=== PATIENT | female | born 1980 | race Caucasian/White ===

== ENCOUNTER → 2016-08-23 | Outpatient (CLI) | payer BC ==
[~2016-08-23] MED LIST: ASACOL HD800 MG PO; BENTYL10 MG; CIPRO250 M1; DELTASONE20 MG PO; FLAGYL250 MG; FLORASTOR250 MG PO; NORCO 5-325 MG1 TAB PO; PREFERA OB TAB1 EACH PO; PROTONIX40 MG PO; ZOFRAN ODT4 MG PO
== END | disposition disaster alternative care site (69) ==
LOC: GRAD 10:17
DX: J32.9 Chronic sinusitis, unspecified (principal); J34.2 Deviated nasal septum

== ENCOUNTER → 2016-08-25 | Outpatient (CLI) | payer BC | END | disposition disaster alternative care site (69) | LOC: GRAD 08:27 | DX: Z03.89 Encounter for observation for other suspected diseases and conditions ruled out (principal) ==

== ENCOUNTER 2016-09-28 00:02 | Emergency (ER) | payer BC ==
--- NOTE | ~2016-09-28 | ER ---
PATIENT'S NAME: CHESTER NARANJO [facility] AGE: 35 Y [address] ROOM: [place] [address] LOCATION: [facility] ADMIT DATE: 09/28/2016 ER/Outpatient Report DISCHARGE DATE: 09/28/2016 FAMILY PHYSICIAN: Anitha Cortes MD ATTENDING PHYSICIAN: Denise Sanchez Time of Arrival: 0002 hours. Time of Evaluation: 0017 hours. IDENTIFICATION: A 35-year-old female. CHIEF COMPLAINT: Shortness of breath. HISTORY OF PRESENT ILLNESS: The patient is a 35-year-old female, postop umbilical hernia repair a week ago, Monday. None hours prior to arrival, the patient became short of breath, worse with movement and a burning chest discomfort in her anterior chest. No radiation of the pain. No nausea or vomiting. No other associated symptoms. Pain is worse with movement and with deep breath. The patient had a low-grade temperature, 99 to 100 at home. She has had no cough. No abdominal pain, nausea or vomiting. PAST MEDICAL HISTORY: ALLERGIES: NO KNOWN DRUG ALLERGIES. CURRENT MEDICATIONS: Denies. MEDICAL PROBLEMS: Crohn's disease. CURRENT MEDICATIONS: 1. Pentasa 2 tablets p.o. b.i.d. control pills. 2. [place] 5/325 p.r.n. PRIOR SURGERIES: Recent hernia repair. SOCIAL HISTORY: The patient is , lives here in [place]. Tobacco use, denies. Alcohol use, denies. Drug use, denies. PATIENT'S NAME: CHESTER NARANJO [facility] AGE: 35 Y [address] ROOM: [place] [address] LOCATION: [facility] ADMIT DATE: 09/28/2016 ER/Outpatient Report DISCHARGE DATE: 09/28/2016 FAMILY PHYSICIAN: Anitha Cortes MD ATTENDING PHYSICIAN: Denise Sanchez REVIEW OF SYSTEMS: All systems reviewed and negative other than what is noted in the HPI. FAMILY HISTORY: No family history of premature coronary artery disease. No family history of blood clots. PHYSICAL EXAMINATION: VITAL SIGNS: Height 5 feet 7 inches, weight 66.6 kg. Pulse 119, blood pressure 111/73, respirations 22, temperature 99.4, and saturations 100% on room air. GENERAL: A 35-year-old female, in mild respiratory distress with tachypnea. HEAD: Normocephalic, atraumatic. EARS: TMs translucent, both ears. EYES: Pupils equal and reactive to light and accommodation. Extraocular movements intact. NOSE: Mucosa pink. No lesions. MOUTH: No lesions. Pharynx benign. NECK: Supple. No lymphadenopathy. No thyromegaly. LUNGS: Clear to auscultation. Breath sounds are equal. No rhonchi, wheezes, or rales. HEART: Sinus tachycardia. No murmur, rub, or gallop. ABDOMEN: Bowel sounds present. Soft. Nondistended. Incision site is clean, dry, and intact with Steri-Strips, no erythema, no tenderness. No CVA tenderness. SKIN: [place], warm, and dry. No lesions or rashes noted. NEURO: The patient is alert and oriented x4. Cranial nerves 2 through 12 grossly intact. Motor strength 5/5 throughout. Sensation is intact to light touch. No lower extremity edema. No calf tenderness. LABORATORY DATA AND X-RAYS: EKG: Sinus tachycardia at 109 beats per minute. No acute ST elevation or depression. Hemoglobin 12.1, hematocrit 37.5, platelets 313, white count 12.6 with a normal differential. INR 1.01. Lactate 1.1. Sodium 139, potassium 4.0, chloride 107, CO2 of 24, BUN 14, creatinine 0.8, blood sugar 85. Liver enzymes normal. Alkaline phosphatase 190. GFR greater than 60. Magnesium 2.0. CPK 39, CK-MB less than 0.5. Troponin I less than 0.040. Procalcitonin less than 0.05. TSH 1.580. UA is negative. Had a negative hCG preop, and denies any interval chance of . CT scan, PE protocol: Small low- density thyroid nodules. No pulmonary embolus. Unremarkable chest CT. EMERGENCY DEPARTMENT COURSE: The patient continued to be tachypneic and had a burning sensation in her chest. GI cocktail did relieve the burning sensation, but she still had pain PATIENT'S NAME: CHESTER NARANJO [facility] AGE: 35 Y [address] ROOM: [place] [address] LOCATION: ED ADMIT DATE: 09/28/2016 ER/Outpatient Report DISCHARGE DATE: 09/28/2016 FAMILY PHYSICIAN: Anitha Cortes MD ATTENDING PHYSICIAN: Denise Sanchez with movement, leaning forward and deep breath. We did discuss options. She received [place] 5/325 one p.o. here. IMPRESSION: 1. Shortness of breath. No acute etiology identified. 2. Pleuritic chest pain. 3. Thyroid nodules, incidentally found on CT scan. Bloom[place] p.r.n. pain. Rest and fluids. Deep breath. No lifting. Follow up with Dr. Cortes in 1 day. Follow up sooner if any problems or concerns. The patient and her understand and agree. We did discuss the use of IV Toradol as an anti-inflammatory, but with her Crohn's disease, he said nonsteroidals are contraindicated, so we did just elect to give her one [place] here. DENISE SANCHEZ MD CAR/modl /[id number] d: 09/28/16 0353 t: 09/28/16 0549, OUTPATIENT REPORT
[2016-09-28 00:52] LABS: BASOPHIL % 0.3 %; EOSINOPHIL # 0.1 K/uL (0.0-0.5); EOSINOPHIL % 0.4 %; HEMATOCRIT 37.5 % (33.0-46.0); HEMOGLOBIN 12.1 g/dL (11.0-15.0); IMMATURE GRANULOCYTE % 0.2 %; LYMPHOCYTE # 2.4 K/uL (0.8-4.0); LYMPHOCYTE % 18.8 %; MCH 27.8 pg (27.0-34.0); MCHC 32.3 gm/dL (32.0-36.5); MCV 86.2 fl (83.0-98.0); MONOCYTE % 7.9 %; MPV 9.9 fl (9.4-12.4); NEUTROPHIL # (ANC) 9.1 K/uL (1.8-7.8); NEUTROPHIL % 72.4 %; NRBC % 0 /100WBC (0-0.00); PLATELET COUNT 313 K/uL (150-450); RBC 4.35 M/uL (3.50-5.50); RDW-CV 13.3 % (11.9-14.6); WBC 12.6 K/uL (4.0-11.0)
[2016-09-28 00:54] LABS: CREATININE 0.8 mg/dL (0.5-1.1); ESTIMATED GFR (MDRD EQUATION) > 60
[2016-09-28 01:04] LABS: INR - (THERAPEUTIC) 1.01 (0.92-1.07); PROTIME 10.6 SECONDS (9.8-11.4); PTT 27 SECONDS (25-32)
[2016-09-28 01:14] LABS: ALBUMIN 3.5 gm/dL (3.5-5.0); ALK PHOS 190 IU/L (33-138); ALT 44 IU/L (12-78); AST 22 IU/L (10-40); BLOOD UREA NITROGEN 14 mg/dL (6-24); CALCIUM 9.3 mg/dL (8.5-10.5); CHLORIDE 107 mMol/L (96-110); CO2 24 mMol/L (22-32); CPK 39 IU/L (21-215); SODIUM 139 mMol/L (135-145); TOTAL BILIRUBIN 0.3 mg/dL (0.0-1.5); TOTAL PROTEIN 7.6 g/dL (6.0-8.4)
[2016-09-28 01:42] LABS: BILIRUBIN URINE NEGATIVE (NEGATIVE); BLOOD URINE NEGATIVE /UL (NEGATIVE); COLOR URINE YELLOW (YELLOW); GLUCOSE URINE NEGATIVE (NEGATIVE); KETONE URINE NEGATIVE (NEGATIVE); LEUKOCYTES URINE NEGATIVE /UL (NEGATIVE); NITRITE URINE NEGATIVE (NEGATIVE); PROTEIN URINE NEGATIVE (NEGATIVE); TURBIDITY URINE CLEAR (CLEAR); UROBILINOGEN URINE NORMAL (NORMAL)
== END 2016-09-28 02:17 | disposition disaster alternative care site (69) ==
LOC: GMED 00:02
PROVIDERS: Family Medicine
DX: R06.02 Shortness of breath (principal); R07.81 Pleurodynia; E04.1 Nontoxic single thyroid nodule; K50.90 Crohn's disease, unspecified, without complications
CPT/HCPCS: J7030; Q9967

== ENCOUNTER → 2016-12-20 | Outpatient (CLI) | payer BC ==
--- NOTE | ~2016-12-20 | ECHO ---
Transthoracic Echocardiography Report (TTE) Demographics Patient Name CHESTER NARANJO Date of Study 12/20/2016 Patient Number [id number] Visit Number [id number] Date of 1980 Room Number Accession Number [id number] Gender Female Age 36 year(s) Referring Can Angel Polarity Tester Dorian Mattson RVT Physician Physician Interpreting Kvng Pritchard MD Solar Sales Physician Supervising Ordering Physician Can Angel MD, MD/P Nurse Stress Tablet Coater Conclusions Contractility Score Summary Normal Left Ventricular contractility was noted. Summary The estimated left ventricular ejection fraction is 55-60%. Diastolic assessment reveals normal relaxation. Mildly reduced right ventricular function. Mild mitral regurgitation by color Doppler. Trivial tricuspid regurgitation by color Doppler. Procedure Type of Study TTE procedure:2D Echocardiogram. Procedure Date Date: 12/20/2016 Start: 09:04 AM Study Location: Inpatient Portable Technical Quality: Adequate visualization Indications:Fatigue and Chest tightness. Appropriate Use Criteria: 9 Patient Status: Routine HR: 65 bpm BP: 101/70 mmHg M-Mode/2D Measurements LV Diastolic Dimension: 4.45 cm LV Systolic Dimension: 3.33 cm LV Septum Diastolic: 0.97 cm LV PW Diastolic: 0.92 cm AO Root Dimension: 2.5 cm Cardiac Output: 3.18 l/min AV Cusp Separation: 1.9 cm RV Diastolic Dimension: 2.11 cm LVOT: 2 cm LVOT VTI: 15.6 cm RV Base: 2.32 cm LV Stroke volume: 48.98 ml RV Length: 5.39 cm TAPSE: 1.49 cm TDI-S': 9.54 cm/s Doppler Measurements AV Peak Velocity: 1.16 m/s MV Peak E-Wave: 0.79 m/s AV Peak Gradient: 5.38 mmHg MV Peak A-Wave: 0.51 m/s AV Mean Gradient: 3 mmHg MV E/A Ratio: 1.53 LVOT Peak Velocity: 0.74 m/s MV P1/2t: 51 msec TR Gradient:18.66 mmHg PV Peak Velocity: 0.66 m/s PV Peak Gradient: 1.75 mmHg E' Septal Velocity: 0.1 m/s A' Septal Velocity: 0.07 m/s E' Lateral Velocity: 0.18 m/s A' Lateral Velocity: 0.08 m/s Findings Left Ventricle Diastolic assessment reveals normal relaxation. Right Ventricle Mildly reduced right ventricular function. Left Atrium Normal left atrial size. Right Atrium Normal right atrial size. Mitral Valve Mild mitral regurgitation by color Doppler. Aortic Valve Normal aortic valve structure and function. Tricuspid Valve Trivial tricuspid regurgitation by color Doppler. Pulmonic Valve Normal pulmonic valve structure and function. Pericardial Effusion No evidence of pericardial effusion. Miscellaneous Visualized portions of the aortic root and ascending aorta appear normal in size. Pleural Effusion No evidence of pleural effusion. Contractility Score LV regional wall motion:(0-Non visualized 1-Normal 2-Hypokinesis 3-Akinesis 4-Dyskinesis 5-Aneurysm) Signature dtt: Macho Calderon (cardio) dtd: 12/20/16 0904 Physician Self Edit
--- NOTE | ~2016-12-20 | PUL ---
PATIENT'S NAME: CHESTER NARANJO [facility] AGE: 36 Y [address] ROOM: [place] [address] LOCATION: [facility] ADMIT DATE: 12/20/2016 Pulmonary DISCHARGE DATE: FAMILY PHYSICIAN: Anitha Cortes MD ATTENDING PHYSICIAN: Jeanne North NAME OF PROCEDURE: Pulmonary Function Test DATE OF PROCEDURE: December 20, 2016 TECH: INNA Galan REASON FOR EXAM: Shortness of breath RESULTS: 1. FVC was 3.52 liters which is 86% predicted and normal, FEV1 was 2.62 liters which is 78% of predicted and low, and FEV1/FVC was 74% and normal for patient's demographics. The flow volume curve did not reveal any significant airflow limitation. After bronchodilator administration FVC increased to 3.67 liters which is a 4% increase and FEV1 increased to 3.03 liters which is a 16% increase. FEV1/FVC was 83%. 2. DLCO was 20.4 with an adjusted DLCO of 21.3 which is 93% of predicted and normal. 3. Total lung capacity was 5.34 liters which is 94% of predicted and normal and residual volume was 1.83 liters which is 97% of predicted and normal. PHYSICIAN INTERPRETATION: The patient has no airflow limitation but has a positive bronchodilator response. Her diffusion capacity is normal. There is no evidence of restrictive lung disease. MD OMER BHAGAT/penelope /[id number] dtt: 12/22/16 0854 , ANNIA DOBBINS dtd: 12/21/16 1431
== END | disposition disaster alternative care site (69) ==
LOC: GCAR 12-19 10:00
DX: R53.83 Other fatigue (principal); R76.0 Raised antibody titer; R07.89 Other chest pain; I27.2 Other secondary pulmonary hypertension; I34.0 Nonrheumatic mitral (valve) insufficiency; I07.1 Rheumatic tricuspid insufficiency